=== PATIENT | male | born 1985 | race African-American/Black ===

== ENCOUNTER 2022-11-08 15:54 | Emergency (ER) | payer OTHER ==
[~2022-11-08] VITALS: Ht 162.6 cm; Wt 68.7 kg
[2022-11-08 16:11] VITALS: TEMP 98.8
[2022-11-08 16:39] LABS: PLATELET COUNT 311 K/uL (142-355)
[2022-11-08 16:51] LABS: POTASSIUM 4.6 mmol/L (3.6-5.2); SODIUM 137 mmol/L (136-145)
[2022-11-08 18:15] VITALS: BP 115/66
== END 2022-11-08 18:18 | disposition home or self-care (01) ==
LOC: ED 15:54
PROVIDERS: Emergency Medicine
DX: R42 Dizziness and giddiness (principal); I95.9 Hypotension, unspecified; R25.2 Cramp and spasm
CPT/HCPCS: 80053; 81002; 82550; 83735; 84484; 85027; 93005; 99283